=== PATIENT | female | born 1975 | race African-American/Black ===

== ENCOUNTER 2019-05-21 00:27 | Emergency (ER) | payer BC ==
[~2019-05-21] VITALS: Ht 157.5 cm; Wt 67.9 kg
[2019-05-21 02:25] VITALS: BP 108/62
== END 2019-05-21 03:33 | disposition home or self-care (01) ==
LOC: ED 03:00
DX: N20.0 Calculus of kidney (principal); R11.10 Vomiting, unspecified
CPT/HCPCS: 36415; 74176; 80053; 81001; 83690; 84703; 85025; 96361; 96374; 96375; 99284; J1885; J2405; J7030